=== PATIENT | female | born 1995 | race Caucasian/White ===

== ENCOUNTER 2016-11-05 09:03 | Day surgery (SDC) | payer BC ==
[2016-11-05] MEDS ORDERED: NORMAL SALINE 1000 ML 1,000 ML IV ONE (09:58)
--- NOTE | 2016-11-05 10:03 | ER Document Report ---
ED GI/ - General Chief Complaint: Abdominal Pain Stated Complaint: ABDOMINAL PAIN Time Seen by Provider: 11/05/16 09:47 Mode of Arrival: Ambulatory Information source: Patient TRAVEL OUTSIDE OF THE [place] IN LAST 30 DAYS: No - HPI Patient complains to provider of: Abdominal pain Onset: Yesterday - AM Timing/Duration: Gradual, Persistent Quality of pain: Dull Severity at maximum: Moderate Severity in ED: Moderate Context: denies: Bad food, Lifting, Out of the country travel, , Recent trauma Location: RLQ Vaginal bleeding (Compared to normal period): None LMP: DEPO Associated symptoms: Loss of appetite, Nausea. denies: Constipation, Diarrhea, Dysuria, Vomiting Exacerbated by: Movement Relieved by: Denies Similar symptoms previously: No Recently seen / treated by doctor: Yes - PCP, THIS AM, REFERRED TO E.D. - Related Data Allergies/Adverse Reactions: No Known Allergies Allergy (Verified 11/05/16 09:31) Home Medications: Current Home Medications Fluticasone Propionate [Flovent Hfa 110 Mcg Inhalation Aerosol 12 gm] 1 puff IN BID 11/05/16 [History] Ipratropium [place] [Atrovent Hfa Inhalation Aerosol 12.9 gm Mdi] 1 puff IN Q6H PRN 11/05/16 [History] Past Medical History - General Information source: Patient - Social History Smoking Status: Never Smoker Chew tobacco use (# tins/day): No Frequency of alcohol use: None Drug Abuse: None Lives with: Family Family History: Reviewed & Not Pertinent Patient has suicidal ideation: No Patient has homicidal ideation: No - Past Medical History Cardiac Medical History: Reports: None Pulmonary Medical History: Reports: Hx Asthma EENT Medical History: Reports: None Neurological Medical History: Reports: None Endocrine Medical History: Reports: None Renal/ Medical History: Reports: None. Denies: Hx Peritoneal Dialysis Malignancy Medical History: Reports: None GI Medical History: Reports: None Musculoskeltal Medical History: Reports None Psychiatric Medical History: Reports: None Surgical Hx: Negative - Immunizations Hx Diphtheria, Pertussis, Tetanus Vaccination: Yes Review of Systems - Review of Systems Constitutional: No symptoms reported EENT: No symptoms reported Cardiovascular: No symptoms reported Respiratory: No symptoms reported Gastrointestinal: See HPI Genitourinary: No symptoms reported Female Genitourinary: No symptoms reported Skin: No symptoms reported Neurological/Psychological: No symptoms reported Physical Exam - Vital signs Vitals: Temp Pulse Resp BP Pulse Ox 98.5 F 110 H 14 119/79 100 11/05/16 09:08 11/05/16 09:08 11/05/16 09:08 11/05/16 09:08 11/05/16 09:08 Interpretation: Tachycardic. No: Bradycardic, Tachypneic, Febrile - General General appearance: Appears well, Alert In distress: None - HEENT Head: Normocephalic Eyes: Normal Conjunctiva: Normal Cornea: Normal Ears: Normal Nasal: Normal Mouth/Lips: Normal Mucous membranes: Dry Pharynx: Normal Neck: Normal - Respiratory Respiratory status: No respiratory distress Breath sounds: Rales - Cardiovascular Rhythm: Regular, Tachycardia Heart sounds: Normal auscultation Murmur: Yes - Abdominal Inspection: Normal Distension: No distension Bowel sounds: Hypoactive - Back Back: Normal. No: CVA tenderness - Neurological Neuro grossly intact: Yes Cognition: Normal Orientation: AAOx4 - Psychological Associated symptoms: Normal affect, Normal mood - Skin Skin Temperature: Warm Skin Moisture: Dry Skin Color: Normal Skin Turgor: Elastic Course - Vital Signs Vital signs: Temp Pulse Resp BP Pulse Ox 99.4 F 94 18 101/60 99 11/05/16 12:54 11/05/16 12:54 11/05/16 12:54 11/05/16 12:54 11/05/16 12:54 - Laboratory Result Diagrams: 11/05/16 09:40 11/05/16 09:40 Laboratory results interpreted by me: 11/05/16 11/05/16 09:40 09:40 WBC 12.5 H Seg Neutrophils % 79.7 H Lymphocytes % 11.9 L Absolute Neutrophils 9.9 H Albumin 5.1 H - Consults DR. CALLEJAS Time consulted: 10:54 Reason for consultation: 11/05/16 11:01 ADVISES: NEED CT ABD. & PELVIS Discharge - Discharge Clinical Impression: Appendicitis Qualifiers: Appendicitis type: acute appendicitis Acute appendicitis type: with localized peritonitis Qualified Code(s): K35.3 - Acute appendicitis with localized peritonitis Condition: Stable Disposition: ADMITTED OBSERVATION Admitting Provider: Surgicalist Unit Admitted: OR
[2016-11-05] MEDS ORDERED: LIDOCAINE 2% INJ-PF (20 MG/ML) 10 ML AMPUL ONE (10:12)
[2016-11-05] MEDS ORDERED: GLYCOPYRROLATE INJ 0.4 MG/2 ML VIAL ONE (10:12)
[2016-11-05] MEDS ORDERED: ONDANSETRON HCL INJ/PF 4 MG/2 ML SDV ONE (10:12)
[2016-11-05] MEDS ORDERED: SUCCINYLCHOLINE CHLORIDE INJ 200 MG/10 ML VIAL ONE (10:12)
[2016-11-05] MEDS ORDERED: DEXAMETHASONE SOD PHOSPHATE INJ 4 MG/1 ML VIAL ONE (10:12)
[2016-11-05] MEDS ORDERED: METOCLOPRAMIDE HCL INJ/PF 10 MG/2 ML SDV ONE (10:12)
[2016-11-05] MEDS ORDERED: NEOSTIGMINE METHYLSULFATE 10 MG/10 ML VIAL ONE (10:12)
[2016-11-05] MEDS ORDERED: ROCURONIUM BROMIDE INJ 50 MG/5 ML VIAL IV ONE (10:12)
[2016-11-05 10:19] LABS: ABSOLUTE EOSINOPHILS # (AUTO) 0.3 10^3/uL (0.0-0.6); ABSOLUTE LYMPHOCYTES (AUTO) 1.5 10^3/uL (0.5-4.7); ABSOLUTE MONOCYTES (AUTO) 0.7 10^3/uL (0.1-1.4); ABSOLUTE NEUT (AUTO) 9.9 10^3/uL (1.7-8.2); BASOPHILS % (AUTO) 0.3 % (0-2); EOSINOPHILS % (AUTO) 2.8 % (0-6); HEMATOCRIT 41.9 % (36.0-47.0); HEMOGLOBIN 14.1 g/dL (12.0-15.5); HGB HCT DIFFERENCE 0.4; LYMPHOCYTES % (AUTO) 11.9 % (13-45); MEAN CORPUSCULAR HGB CONC 33.6 g/dL (32.0-36.0); MEAN CORPUSCULAR VOLUME 89 fl (80-97); MONOCYTES % (AUTO) 5.3 % (3-13); RED BLOOD COUNT 4.69 10^6/uL (3.72-5.28); RED CELL DISTRIBUTION WIDTH 12.9 % (11.5-14.0); SEGMENTED NEUTROPHILS % (AUTO) 79.7 % (42-78); WHITE BLOOD COUNT 12.5 10^3/uL (4.0-10.5)
[2016-11-05 10:34] LABS: APPEARANCE,URINE CLEAR; BILIRUBIN,URINE NEGATIVE (NEGATIVE); GLUCOSE, URINE NEGATIVE (NEGATIVE); KETONES,URINE NEGATIVE (NEGATIVE); LEUKOCYTE ESTERASE,URINE NEGATIVE (NEGATIVE); NITRITE,URINE NEGATIVE (NEGATIVE); PROTEIN,URINE NEGATIVE (NEGATIVE); URINE SPECIFIC GRAVITY 1.012; UROBILINOGEN,URINE NEGATIVE mg/dL (<2.0)
[2016-11-05 10:40] LABS: ALANINE AMINOTRANSFERASE 38 U/L (9-52); ALBUMIN 5.1 g/dL (3.5-5.0); ALKALINE PHOSPHATASE 63 U/L (38-126); ANION GAP 15 (5-19); ASPARTATE AMINO TRANSFERASE 24 U/L (14-36); BILIRUBIN,DIRECT 0.3 mg/dL (0.0-0.4); BILIRUBIN,TOTAL 1.3 mg/dL (0.2-1.3); BLOOD UREA NITROGEN 13 mg/dL (7-20); CALCIUM 10.1 mg/dL (8.4-10.2); CARBON DIOXIDE 23 mmol/L (22-30); CHLORIDE 105 mmol/L (98-107); GLUCOSE 86 mg/dL (75-110); LIPASE 74.7 U/L (23-300); POTASSIUM 4.2 mmol/L (3.6-5.0); SODIUM 143.2 mmol/L (137-145)
[2016-11-05] MEDS ORDERED: AMPICILLIN SOD/SULBACTAM 3 GM VIAL IV ONE (10:49)
--- NOTE | 2016-11-05 14:03 | RADIOLOGY REPORT (SQ) ---
EXAM DESCRIPTION: CT ABD/PELVIS WITH IV ORAL COMPLETED DATE/TIME: 11/05/2016 1:46 pm REASON FOR STUDY: R/O APPY COMPARISON: None. TECHNIQUE: CT scan of the abdomen and pelvis performed using helical scanning technique with dynamic intravenous contrast injection and oral contrast. Images reviewed with lung, soft tissue, and bone w indows. Reconstructed coronal and sagittal MPR images reviewed. Delayed images for evaluation of the urinary system also acquired. All images stored on PACS. All CT scanners at this facility use dose modulation, iterative reconstruction, and/or weight based d osing when appropriate to reduce radiation dose to as low as reasonably achievable (ALARA). [facility]: Dose Right [facility]: CareDose [facility]: Dose Right [facility]: Teradose 4D [facility]: [employer] CONTRAST TYPE AND DOSE: contrast/concentration: Isovue 370.00 mg/ml; Total Contrast Delivered: 54.0 ml; Total Saline Delivered: 65.1 ml RENAL FUNCTION: None required. The patient is less than 50 years old. RADIATION DOSE: Up-to-date CT equipment and radiation dose reduction techniques were employed. CTDIv ol: 5.6 - 5.7 mGy. DLP: 521 mGy-cm.. LIMITATIONS: None. FINDINGS: LOWER CHEST: No significant findings. No nodules or infiltrates. LIVER: Normal size. No masses. No dilated ducts. SPLEEN: Normal size. No focal lesions. PANCREAS: No masses. No significant calcifications. No adjacent inflammation or peripancreatic fluid collections. Pancreatic duct not dilated. GALLBLADDER: No identified stones by CT criteria. No inflammatory changes to suggest cholecystitis. ADRENAL GLANDS: No significant masses or asymmetry. RIGHT KIDNEY AND URETER: No solid masses. No significant calcifications. No hydronephrosis or hyd roureter. LEFT KIDNEY AND URETER: No solid masses. No significant calcifications. No hydronephrosis or hydr oureter. AORTA AND VESSELS: No aneurysm. No dissection. Renal arteries, SMA, celiac without stenosis. RETROPERITONEUM: No retroperitoneal adenopathy, hemorrhage or masses. BOWEL AND PERITONEAL CAVITY: No masses or inflammatory changes. No free fluid or peritoneal masses. APPENDIX: The appendix is distended. There are edematous or inflammatory changes in the adjacent mes enteric fat. The appearance is consistent with appendicitis PELVIS: No mass. No free fluid. Normal bladder. ABDOMINAL WALL: No masses. No hernias. BONES: No significant or acute findings. OTHER: No other significant finding. IMPRESSION: Findings consistent with appendicitis. Other findings as noted above TECHNICAL DOCUMENTATION: JOB ID: [id number] Quality ID # [id number]: Final reports with documentation of one or more dose reduction techniques (e.g., Au tomated exposure control, adjustment of the mA and/or kV according to patient size, use of iterative reconstruction technique) 2010 [employer]- All Rights Reserved
[2016-11-05] MEDS ORDERED: ACETAMINOPHEN 100 ML IV ONE (15:00)
[2016-11-05] MEDS ORDERED: FENTANYL CITRATE INJ/PF 250 MCG/5 ML AMPULE ONE (15:00)
[2016-11-05] MEDS ORDERED: EPHEDRINE SULFATE INJ 50 MG/1 ML AMPULE ONE (15:00)
[2016-11-05] MEDS ORDERED: DEXMEDETOMIDINE INJ 80 MCG/20 ML VIAL IV ONE (15:00)
[2016-11-05] MEDS ORDERED: MIDAZOLAM 2 MG/2 ML INJ ONE (15:00)
[2016-11-05] MEDS ORDERED: PROPOFOL INJ 200 MG/20 ML VIAL IV ONE (15:00)
[2016-11-05] MEDS ORDERED: IBUPROFEN INJ 800 MG/8 ML VIAL IV ONE (15:01)
[2016-11-05] MEDS ORDERED: BUPIVACAINE HCL 0.25 % INJ/PF (2.5 MG/1 ML) 30 ML VIAL ONE (15:14)
[2016-11-05] MEDS ORDERED: MORPHINE SULFATE 10 MG/ML INJ IV PRN (15:43)
[2016-11-05] MEDS ORDERED: MEPERIDINE HCL/PF INJ 25 MG/1 ML DISP.SYRIN IV PRN (15:43)
[2016-11-05] MEDS ORDERED: FENTANYL CITRATE INJ/PF 100 MCG/2 ML AMPUL IV PRN ×3 (15:43)
[2016-11-05] MEDS ORDERED: DIPHENHYDRAMINE HCL 50 MG/ML VIAL IV PRN (15:43)
[2016-11-05] MEDS ORDERED: PROMETHAZINE HCL INJ 25 MG/1 ML VIAL IV PRN ×2 (15:43)
[2016-11-05] MEDS ORDERED: ONDANSETRON HCL INJ/PF 4 MG/2 ML SDV IV PRN ×2 (15:43→16:47)
--- NOTE | 2016-11-05 15:57 | HISTORY AND PHYSICAL E ---
History and Physical NAME: KATIE OH : 1995 AGE: 21Y ADMITTED: 11/05/2016 ROOM: ED04 CHIEF COMPLAINT: Abdominal pains. HISTORY OF PRESENT ILLNESS: This is a 21-year-old female who complained of generalized abdominal pains on 11/04/2016 in the morning, associated with nausea. Later in the day the pains localized in the right lower quadrant. The pain has been persistent and went to the emergency room where a CAT scan of the abdomen revealed acute appendicitis. PAST HISTORY: History of pneumonia at age 6 and subsequently developed bronchial asthma ever since. She is on inhalers. ALLERGIES: None known. FAMILY HISTORY: Positive for diabetes. SOCIAL HISTORY: Denies smoking, drinking or recreational drug use. REVIEW OF SYSTEMS: As in HPI. Denies any fever or chills. No cough or shortness of breath, no sore throat. GI as in HPI with right lower quadrant pain with nausea. No constipation. Bowel movements are somewhat loose. No easy bruisability. No seizures or balance problems. The rest of the systems are unremarkable. PHYSICAL EXAMINATION: GENERAL: A well-developed, well-nourished 21-year-old female, alert and oriented, complaining of right lower quadrant pains. HEENT: Neck is supple, no thyromegaly. LUNGS: Clear. HEART: Regular sinus rhythm. ABDOMEN: Soft with tenderness and rebound in the right lower quadrant. EXTREMITIES: No edema. IMPRESSION: 1. Acute appendicitis. 2. History of bronchial asthma. PLAN: 1. Patient for laparoscopic appendectomy. 2. Started on IV antibiotics and hydration. DICTATING PHYSICIAN: SUSY CALLEJAS M.D. [id number] PHY#: [id number] ID: [id number] JOB#: [id number] ACCT: [id number] cc:SUSY CALLEJAS M.D., RUTH M.D. >
[2016-11-05] MEDS ORDERED: MORPHINE SULFATE 10 MG/ML INJ INJ ONE (16:35)
[2016-11-05] MEDS ORDERED: MORPHINE SULFATE 10 MG/ML INJ ONE (16:39)
[2016-11-05] MEDS ORDERED: AMPICILLIN SOD/SULBACTAM 3 GM VIAL IV PRN (16:48)
--- NOTE | 2016-11-05 18:07 | OPERATIVE REPORT E ---
Operative Report NAME: KATIE OH : 1995 AGE: 21Y DATE OF SURGERY: 11/05/2016 ROOM: 532 PREOPERATIVE DIAGNOSIS: Acute appendicitis. POSTOPERATIVE DIAGNOSIS: Acute appendicitis. OPERATION: Laparoscopic appendectomy. SURGEON: SUSY CALLEJAS M.D. ANESTHESIA: General. INDICATIONS: This is a 21-year-old female who complained of abdominal pains since yesterday, localized in the right lower quadrant. They have been associated with nausea. CAT scan of the abdomen revealed acute appendicitis. DESCRIPTION OF PROCEDURE: After adequate general anesthesia, the patient was placed in a supine position and the abdomen prepped and draped in the usual sterile fashion. Appropriate timeout was obtained. Next, an infraumbilical elliptical incision was made and the fascia opened, and Mony trocar inserted into the abdominal cavity and CO2 insufflated to a pressure of 15 mmHg. Two other trocars were placed, a 5 mm in the suprapubic and a 12 mm in the left lower quadrant under direct vision. Next, the base of the appendix was identified by tracing the anterior taenia on the cecum. The appendix appears to be retrocecal and quite difficult to identify. Because of this, a hole made at the neck of the appendix and further enlargement through the mesoappendix with the use of Harmonic norman was done. Next, the appendix was lifted up and base of the appendix right on the cecum was then stapled with an Endo CHICO. The appendix was then serially dissected with the use of Harmonic norman. Mesoappendix divided and cauterized with the use of Harmonic norman. The tip of the appendix was markedly swollen and embedded on the side of the cecum. It was then completely released with the use of Harmonic norman. It was then placed in an Endobag and pulled out through the umbilical port. Next, the stump was then reinspected and noted to have adequate hemostasis. No other bleeding sites noted around the dissection areas. The abdominal cavity was further investigated and no obvious abnormality noted. Next, all the trocars were then removed and no bleeding from the right lower quadrant trocar to the peritoneal area on direct vision. Next, other trocars were removed and the fascial defect at the infraumbilical area was then closed with a [id number] suture using 0 Vicryl. All the skin incisions were then closed with running subcuticular closure using 4-0 Vicryl undyed. Marcaine 0.25% was then injected to the fascia into the abdominal skin incisions. Dermaband was used as a dressing on the top of the incisions. The patient tolerated the procedure well. Needle, instrument, and sponge counts were all correct and estimated blood loss about 20 mL. The patient was then brought to the recovery room in satisfactory condition. DICTATING PHYSICIAN: SUSY CALLEJAS M.D. [id number] PHY#: [id number] ID: [id number] JOB#: [id number] ACCT: [id number] cc:SUSY CALLEJAS M.D. >
[2016-11-05] MEDS: HYDROMORPHONE HCL INJ/PF 2 MG/ML AMPULE IV PRN ×2 (18:34→19:02)
[2016-11-05] MEDS: NORMAL SALINE 1000 ML 1,000 ML IV PRN (18:34)
[2016-11-05] MEDS: OXYCODONE-ACETAMINOPHEN 5-325 MG TABLET PO PRN ×2 (18:34→23:33)
[2016-11-05] MEDS ORDERED: AMPICILLIN SOD/SULBACTAM 3 GM VIAL ONE (19:06)
[2016-11-05] MEDS: AMPICILLIN SODIUM/SULBACTAM NA 3 GM in NORMAL SALINE 100 ML IV SCH (19:46)
[2016-11-06] MEDS: AMPICILLIN SODIUM/SULBACTAM NA 3 GM in NORMAL SALINE 100 ML IV SCH ×2 (01:51→09:41)
[2016-11-06] MEDS: NORMAL SALINE 1000 ML 1,000 ML IV PRN (06:16)
[2016-11-06] MEDS: OXYCODONE-ACETAMINOPHEN 5-325 MG TABLET PO PRN (08:14)
[2016-11-06 08:58] VITALS: BP 94/75
--- NOTE | 2016-11-06 14:42 | DISCHARGE SUMMARY E ---
Discharge Summary NAME: KATIE OH : 1995 AGE: 21Y ADMITTED: 11/05/2016 DISCHARGED: 11/06/2016 FINAL DIAGNOSIS: Acute appendicitis. PROCEDURE: Laparoscopic appendectomy, 11/05/2016. HOSPITAL COURSE: This is a 21-year female who was admitted for acute appendicitis. The laparoscopic appendectomy was done on 11/05/2016. Her postoperative course was uneventful and discharged improved on 11/06/2016. She was advised not to do any lifting more than 10 pounds for the next 2 weeks. She can have a regular diet. Prescription for Percocet was given for her to take 1 every 6 hours p.r.n. for pain. Arrangements were made for her to be seen in the [facility] in 2 weeks. DICTATING PHYSICIAN: SUSY CALLEJAS M.D. [id number] PHY#: [id number] ID: [id number] JOB#: [id number] ACCT: [id number] cc:MAE GARCES M.D., FAUSTINO M.D. GUDGER, JOHN C. M.D. >
== END 2016-11-06 12:50 | disposition home or self-care (01) ==
LOC: ER 09:03 → OROUT 14:43 → UNDOADMOB 14:43 → EH 14:43 → ER 14:43 → 5 17:15 → EH 17:15 → 5 17:15 → UNDODISOB 11-06 12:50 → OROUT 11-06 12:50
PROVIDERS: ATTEND Surgery
PROC: 0DTJ4ZZ Resection of Appendix, Percutaneous Endoscopic Approach (ICD-10-PCS; principal; 2016-11-05 15:00)
DX: K35.80 Unspecified acute appendicitis (principal); J45.909 Unspecified asthma, uncomplicated
CPT/HCPCS: 36415; 74177; 80053; 81001; 83690; 840; 84703; 85025; 88304; 96361; 96365; 99285; J0131; J0295; J0330; J1100; J1170; J1741; J2250; J2270; J2405; J2704; J2765; J3010; J3490; J7030